=== PATIENT | male | born 1960 | race Hispanic/Latino ===

== ENCOUNTER 2019-05-14 09:29 | Outpatient (CLI) | payer BC ==
--- NOTE | 2019-05-14 18:07 | RAD ---
LEFT KNEE FOUR VIEWS: 05/14/2019 FINDINGS: There is medial joint space narrowing and some small osteophytes. Calcification of the lateral menisc us is noted. No fracture or joint effusion is seen. IMPRESSION: Degenerative changes of the medial compartment. Other findings as above. POS: HOME
--- NOTE | 2019-05-14 18:08 | RAD ---
RIGHT KNEE FOUR VIEWS: 05/14/2019 FINDINGS: Comparison with the left knee shows similar findings in that there is marked medial joint space narro wing and some small osteophytes. The articular surfaces remain reasonably smooth. No fracture or join t effusion is seen. There are a few soft tissue calcifications around the head of the fibula that are probably longstanding. IMPRESSION: Medial compartment arthritic change. POS: HOME
== END 2019-05-14 09:30 | disposition home or self-care (01) ==
LOC: BURRAD 09:29
PROVIDERS: ATTEND Nurse Practitioner Family
DX: M25.562 Pain in left knee (principal); M17.0 Bilateral primary osteoarthritis of knee; M25.762 Osteophyte, left knee